=== PATIENT | female | born 1990 | race Two or more races ===

== ENCOUNTER 2024-08-28 04:26 | Emergency (ER) | payer BC, SELFPAY ==
[2024-08-28 04:26] VITALS: BMI 22.9
[2024-08-28 04:42] VITALS: BP 99/64; PULSE 71; RESP 19; TEMP 36.4; O2SAT 100
--- NOTE | 2024-08-28 05:17 | XR_ITS ---
Examination: CT abdomen and pelvis without contrast. Coronal 3-D reconstructions. Sagittal 2-D reconstructions. Date and time of exam:August 28, 2024 0721 hrs. Indications: Right-sided flank pain right upper abdominal pain beginning today CTDI: vol (mGy): 5.57 DLP: (mGycm): 284 Technique: Axial images of the abdomen have been obtained, 3 mm slice thickness Intravenous contrast material has not been administered. Low dose protocols were performed. One or more of the following dose reduction techniques were used; automated exposure control, adjustment of the mA and/or KV according to patient size, use of iterative reconstruction technique. Findings: No focal liver or splenic lesions No gallstones No pancreatic mass No renal or ureteral calculi, no hydronephrosis Aorta normal size No bowel obstruction Normal appendix No diverticulitis Anteverted uterus with no uterine or adnexal mass Contracted urinary bladder The osseous structures are intact Impression: No renal or ureteral calculi, no hydronephrosis Normal appendix No bowel obstruction diverticulitis or free air
--- NOTE | 2024-08-28 05:18 | PD.EDRME ---
Rapid Medical Screening Exam [facility] Arrival date/time: 08/28/24 04:26 34F with no significant PMH presents to ED with 2 days of N/V, ab/flank pain, and non-bloody diarrhea. Patient denies dysuria/hematuria and vaginal bleeding. Chief Complaint: Abdominal Pain Vital signs: Vital Signs Temperature 97.5 F 08/28/24 04:42 Pulse Rate 71 08/28/24 04:42 Respiratory Rate 19 08/28/24 04:42 Blood Pressure 99/64 08/28/24 04:42 Pulse Oximetry (%) 100 08/28/24 04:42 Oxygen Delivery Method Room Air 08/28/24 04:42
[2024-08-28] MEDS: ONDANSETRON ODT 4 MG TABRAP PO (05:30)
[2024-08-28] MEDS: KETOROLAC INJ 60 MG/2 ML VIAL IM (05:30)
[2024-08-28 05:57] LABS: Basophils % (Auto) 0 % (0-2.5); Eosinophils % (Auto) 0 % (0-10); Hematocrit 36.2 % (36.0-46.0); Hemoglobin 12.4 g/dL (12.0-16.0); Immature Granulocytes % (Auto) 0 % (0-0); Immature Granulocytes Auto 0.04 Thou/mm3 (0.00-0.00); Lymphocytes # (Auto) 1.7 Thou/mm3 (1.0-4.8); Lymphocytes % (Auto) 16 % (10-50); Mean Corpuscular HGB Conc 34.3 g/dl (31.0-37.0); Mean Corpuscular Hemoglobin 31.6 pg (25.0-35.0); Mean Corpuscular Volume 92 fL (80-100); Monocytes # (Auto) 0.5 Thou/mm3 (0.0-0.8); Monocytes % (Auto) 5 % (0-12); Neutrophils # (Auto) 7.9 Thou/mm3 (1.8-7.7); Neutrophils % (Auto) 78 % (37-80); Nucleated Red Blood Cell % 0 /100 WBC (0); Platelet Count 254 Thou/mm3 (140-440); RDW Standard Deviation 41.9 fL (36.4-46.3); Red Blood Count 3.92 Miln/mm3 (4.00-5.20); White Blood Count 10.1 Thou/mm3 (3.6-11.0)
[2024-08-28 06:28] LABS: Alanine Aminotransferase 28 U/L (10-49); Albumin, Serum 4.9 gm/dL (3.5-5.0); Albumin/Globulin Ratio 1.7 (1.2-2.2); Alkaline Phosphatase 66 U/L (46-116); Anion Gap 10 (7-16); Aspartate Amino Transferase 25 U/L (0-34); BUN/Creatinine Ratio 17 Ratio (12-20); Bilirubin,Total 0.5 mg/dL (0.3-1.2); Blood Urea Nitrogen 12 mg/dL (9-23); Calcium 9.8 mg/dL (8.3-10.6); Calcium (Corrected) 9.8 mg/dL (8.5-10.1); Carbon Dioxide 20.7 mMol/L (20.0-31.0); Chloride 106 mMol/L (98-107); Creatinine (Component) 0.7 mg/dL (0.6-1.3); Globulin 2.9 gm/dL (2.3-3.5); Glucose 104 mg/dL (74-106); Lipase 36 U/L (12-53); Osmolality,Calculated 273 (275-295); Potassium 3.7 mMol/L (3.4-5.1); Sodium 137 mMol/L (136-145); Total Protein 7.8 gm/dL (5.7-8.2); eGFR > 60 See Note
[2024-08-28 07:01] LABS: HCG,Qualitative Serum Negative
[2024-08-28 07:58] VITALS: BP 142/72; PULSE 88; RESP 16; TEMP 36.8; O2SAT 99
--- NOTE | 2024-08-28 07:59 | EDNOTE_ITS ---
<Statement entered by Rosalba Camp MD - 08/28/24 11:46> As co-signing physician, I was present and available for consult prn. I concur with the plan and care as documented by the midlevel provider. ED Abdominal Pain RME/HPI General Chief Complaint: Abdominal Pain Stated complaint: ABD PAIN AND VOMITING Time seen by provider: 08/28/24 06:24 Arrival date/time: 08/28/24 04:26 34-year-old female presents to the emergency department today with complaints of right-sided flank pain diarrhea and nausea ongoing for the last 3 days patient reports no significant no problems no chest pain shortness headache or dizziness. Limitations: no limitations RME / HPI RME / HPI narrative: 08/28/24 04:26 34F with no significant PMH presents to ED with 2 days of N/V, ab/flank pain, and non-bloody diarrhea. Patient denies dysuria/hematuria and vaginal bleeding. Related Data Previous Rx's ?Medication ?Instructions ?Recorded nitrofurantoin 100 mg PO BID #14 caps 06/02/18 monohydrate/macrocrystals 100 mg capsule (Macrobid) Allergies Allergy/AdvReac Type Severity Reaction Status Date / Time Penicillins Allergy Severe RASH Verified 06/01/18 22:45 Review of Systems Review of Systems Systems Reviewed: All systems reviewed, normal except as documented Constitutional Constitutional: Reports system reviewed and no additional complaints, except as documented, Denies fever(s) and Denies headache(s) Eyes Eyes: Reports system reviewed and no additional complaints, except as documented and Denies blurry vision ENT Ears, Nose, Mouth, and Throat: Reports system reviewed and no additional complaints, except as documented, Denies headache(s), Denies nasal congestion and Denies nasal discharge Cardiovascular Cardiovascular: Reports system reviewed and no additional complaints, except as documented, Denies chest pain and Denies dyspnea Respiratory Respiratory: Reports system reviewed and no additional complaints, except as documented, Denies chest congestion, Denies cough and Denies dyspnea Gastrointestinal Gastrointestinal: Reports system reviewed and no additional complaints, except as documented, Reports abdominal pain, Reports nausea and Denies vomiting Integumentary/Breasts Skin/Breast: Reports system reviewed and no additional complaints, except as documented and Denies rash Neurologic Neurologic: Reports system reviewed and no additional complaints, except as documented, Reports as per HPI and Denies headache(s) Past Medical History Past Medical History CARDIAC: Negative Congestive Heart Failure RESPIRATORY: Negative Chronic Obstructive Pulmonary Disease (COPD) GENITOURINARY: Negative Renal Disease ENDOCRINE: Negative Diabetes Mellitus Type 1 or Diabetes Mellitus Type 2 Social History SMOKING STATUS: Never smoker ED Exam General Limitations: Present no limitations General appearance: Present alert and in no apparent distress Head Head exam: Present atraumatic Eye Eye exam: Present normal appearance, PERRL and EOMI ENT ENT exam: Present normal exam, normal oropharynx and mucous membranes moist Neck Neck exam: Present normal inspection, full ROM and trachea midline Chest Chest inspection: Present normal inspection and symmetric chest wall rise Respiratory Respiratory exam: Present normal lung sounds bilaterally; Absent respiratory distress Cardiovascular Cardiovascular exam: Present regular rate, normal rhythm and normal heart sounds Abdominal Exam Abdominal exam: Present soft and normal bowel sounds; Absent distention, tenderness, guarding, rebound, rigidity, May's sign or tenderness at McBurney's Point Abdominal tenderness: Absent RUQ or RLQ Extremities Exam Extremities exam: Present normal inspection and full ROM Back Exam Back exam: Present normal inspection and full ROM Neurological Exam Neurological exam: Present alert, oriented X3, CN II-XII intact, normal gait and reflexes normal; Absent motor sensory deficit Psychiatric Psychiatric exam: Present normal affect and normal mood Skin Skin exam: Present warm, dry, intact and normal color; Absent rash Course Quality Measures none Orders Category Date Time Status CT abdomen pelvis wo con Stat Exams 08/28/24 05:17 Completed CBC Stat Lab 08/28/24 05:35 Completed CMP [Comprehensive Metabolic Panel] Stat Lab 08/28/24 05:35 Completed Drug Screen,Urine Stat Lab 08/28/24 07:56 Completed HCG Qualitative,Urine Stat Lab 08/28/24 06:23 Completed HCG,Qualitative Serum Stat Lab 08/28/24 05:35 Completed Lipase Stat Lab 08/28/24 05:35 Completed UA [Urinalysis] Stat Lab 08/28/24 06:23 Completed Ketorolac Inj [Toradol Inj] Med 08/28/24 05:17 Discontinued 60 mg IM X1 ONE Ondansetron Odt [Zofran Odt] Med 08/28/24 05:17 Discontinued 4 mg PO X1 ONE Vital Signs Vital signs: Vital Signs Temperature 97.5 F 08/28/24 04:42 Pulse Rate 71 08/28/24 04:42 Respiratory Rate 19 08/28/24 04:42 Blood Pressure 99/64 08/28/24 04:42 Pulse Oximetry (%) 100 08/28/24 04:42 Oxygen Delivery Method Room Air 08/28/24 04:42 o2 sat 100% r/a wnl Abdominal Pain MDM MDM Narrative MDM Narrative:: 34-year-old female presents to the emergency department today with complaints of right-sided flank pain diarrhea and nausea ongoing for the last 3 days patient reports no significant no problems no chest pain shortness headache or dizziness. At time my evaluation of this patient patient is already had her lab work and CT completed Patient was given Toradol and Zofran here At time of my evaluation patient reports no fever no abdominal pain no vomiting patient report symptoms have resolved Patient has no leukocytosis CT scan within normal limits no significant findings Patient discharged home in no distress to follow-up with primary care doctor in the next 24 to 48 hours and for any worsening symptoms to return to the ER immediately Patient data External records reviewed:: [facility] previous records Clinical information provided by:: patient Social determinants that could affect healthcare access:: none Patient has the following chronic illnesses:: none How is presenting disease/condition affected by chronic disease/condition?: no chronic disease Evaluation data The following diagnostics were reviewed and interpreted by me:: lab results and radiology exam(s) Lab and/or radiology exams considered but not ordered:: labs and rad obtained Interpretation Summary: reviewed by me Medications / Prescriptions Medications or Prescriptions considered but not ordered:: given Medication administrations:: Medication Administration History Discontinued Medications Ketorolac Tromethamine (Ketorolac Inj 60 Mg/2 Ml Vial) 60 mg IM X1 ONE Stop: 08/28/24 05:18 Last Admin: 08/28/24 05:30 Dose: 60 mg Documented By: SHAD Ondansetron HCl (Ondansetron Odt 4 Mg Tabrap) 4 mg PO X1 ONE; Protocol Stop: 08/28/24 05:18 Last Admin: 08/28/24 05:30 Dose: 4 mg Documented By: SHAD given Consultations Consultation(s) initiated? (list below): No Diagnosis Differential diagnosis abdominal pain: abdominal pain, acute appendicitis, calculus of kidney, diverticulitis, gastroenteritis and pancreatitis Most likely diagnosis given after review of the tests above:: abd pain Admission Indicated Admission indicated?: not indicated Admission Request Was there a request for admission?: No Disposition Plan Disposition Plan: Discharge Discharge Attestation Discharge Attestation: The patient and all family members were given an opportunity to ask questions and understood the discharge instructions. Discharge instructions specifically effects, indications for sooner follow up or return to the emergency department, and the expected course of current diagnosis. Patient condition: Stable Discharge Plan Plan Patient Disposition: HOME (Self Care) Disposition Comment: Stable Prescriptions/Referrals Prescriptions/Med Rec: No Action nitrofurantoin monohyd/m-cryst [Macrobid] 100 mg capsule 100 mg PO BID Qty: 14 0RF Rx Instructions: must administer with a meal/food Referrals: Flaco Sanders MD [Primary Care Provider] - 08/29/24 Problem List Clinical Impression: Abdominal pain Patient/Caregiver Discharge Instructions Education Materials: Abdominal Pain Additional Instructions: Please follow up with your primary care doctor in the next 24-48hrs for any worsening symptoms return here immediately Print Language: Turkmen Stand Alone Forms: Nia Award Info., Patient Portal Info Letter PA/MALIK Supervising Physician PA/MALIK Supervising Physician: Dr. Camp
[2024-08-28 08:26] LABS: Collection Type, Urine Clean Catch
[2024-08-28 08:36] LABS: Bacteria,Urine Rare; Bilirubin,Urine Negative (Negative); Blood,Urine Negative (Negative); Clarity,Urine Clear (Clear/Hazy); Color,Urine Yellow (Lt Yel-Yel); Glucose, Urine Negative (Negative); Hyaline Casts,Urine < 1 /hpf (0-1); Ketones,Urine Trace (Negative); Leukocyte Esterase,Urine Negative (Negative); Nitrite,Urine Negative (Negative); PH,Urine 6.5 (5.0-7.0); Protein,Urine 1+ (Neg - Trace); RBC,Urine 3 /hpf (0-3); Specific Gravity,Urine 1.026 (1.001-1.035); Squamous Epithelial Cell,Urine 3 /hpf (0-5); Urobilinogen,Urine Negative mg/dL (0.0-1.0); WBC,Urine 4 /hpf (0-5)
[2024-08-28 08:38] LABS: Amphetamine/Methamp Scrn,U Negative (Negative); Barbiturate Screen,Urine Negative (Negative); Benzodiazepines Screen,Urine Negative (Negative); Benzoylecgonine Screen, Ur Negative (Negative); Fentanyl Screen,Urine Negative (Negative); Opiate Screen,Urine Negative (Negative); THC Screen,Urine Negative (Negative)
[2024-08-28 09:23] LABS: HCG Qualitative,Urine Negative
== END 2024-08-28 08:03 | disposition home or self-care (01) ==
PROVIDERS: Physician Assistant; Emergency Provider Emergency Medicine; PCP Family Medicine
DX: R10.11 Right upper quadrant pain (principal)
CPT/HCPCS: 36415; 74176; 80053; 80307; 81001; 81025; 83690; 84703; 85025; 96372; 99284; J1885; Q0162